=== PATIENT | female | born 1940 | race Caucasian/White ===

== ENCOUNTER → 2017-04-03 | Outpatient (CLI) | payer MEDICARE ==
[~2017-04-03] MED LIST: ALTACE1.25 MG PO; AMANTADINE HCL100 MG; ASPIRIN81 M1 PO; FOSAMAX; LANTUS100 U/ML; LIPITOR; NEPHROCAPS CAPSU1 MG; NOVOLOG100 U/ML; OYSTER CALCIUM500 MG; PRIMIDONE250 MG; RECLAST 55 MG/100 M INJ; TOPAMAX50 MG PO
[2017-04-03 13:18] LABS: URINE APPEARANCE CLEAR; URINE BILIRUBIN NEG (NEG); URINE BLOOD NEG (NEG); URINE COLOR YELLOW; URINE GLUCOSE NEG (NEG); URINE KETONE NEG (NEG); URINE LEUKOCYTE ESTERASE 2+ (NEG); URINE NITRATE NEG (NEG); URINE PROTEIN NEG (NEG); URINE SPECIFIC GRAVITY 1.016 (1.003-1.035); URINE UROBILINOGEN 0.2 MG/DL (NEG)
[2017-04-03 13:20] LABS: URBCS1 AUWI 0-2 /[HPF] (0-2); URINE BACTERIA AUWI NEG (NEGATIVE); URINE SQUAMOUS EPITHELIAL CELL OCC /[HPF]
== END | disposition home or self-care (01) ==
LOC: CLAB 12:50
PROVIDERS: Nurse Practitioner Adult Health
DX: E11.40 Type 2 diabetes mellitus with diabetic neuropathy, unspecified (principal); D86.2 Sarcoidosis of lung with sarcoidosis of lymph nodes
CPT/HCPCS: 81003; 87086

== ENCOUNTER → 2017-06-03 | Outpatient (CLI) | payer MEDICARE ==
--- NOTE | ~2017-06-03 | US98 ---
[facility] A Service of [facility] RADIOLOGY TEXT RESULTS PATIENT: SANDEEP JOHANSEN LOCATION: [facility] : 38 UNIT #: [id number] AGE: [address]: Tayo Arroyo MD SEX: F ORDER DR: [id number] [facility] [address] [place], [place] [address] [id number] O MR#: [id number] Acc #: [id number] NAME: SANDEEP JOHANSEN : 1940 SEX: F STUDY DATE/TIME: 06/03/2017 12:44 UNIT: [facility] ROOM: STUDY DESCRIPTION: US Pelvic Non-OB Complete Attending Physician: Tayo Arroyo Referring Physician: Tayo Arroyo Ordering Physician: Tiffany Arroyo M.D. Primary Care Physician: Cabrera Matthews M.D. MEDICAL IMAGING REPORT This report is preliminary unless electronic signature is present EXAM Transabdominal and transvaginal pelvic ultrasound. DATE: 06/03/2017 HISTORY 76-year-old female with abdominal swelling and pelvic fullness. The patient states pain has been present for several years. Intermittent constipation. Diabetes. G3, P2. Last menstrual period at the age of 50. History of breast cancer. COMPARISON None. FINDINGS Transabdominal imaging was performed for generalized visualization of pelvic structures while transvaginal imaging was performed for more detailed evaluation of the adnexa. Neither the right nor the left ovary can be satisfactorily visualized on transabdominal or transvaginal imaging. The uterus is atrophic, measuring approximately 4.9 cm x 2.3 cm x 3.2 cm. Endometrial bilayer thickness is approximate 2 mm, compatible with patient's stated age. No focal endometrial myometrium lesion is identified. Benign appearing dystrophic type calcifications are seen within the uterus. No pelvic free fluid is evident. IMPRESSION 1. Normal postmenopausal appearance of the uterus and endometrium. 2. The right and left ovaries could not be satisfactorily visualized either transabdominally or transvaginally. [facility] A Service of [facility] RADIOLOGY TEXT RESULTS PATIENT: SANDEEP JOHANSEN LOCATION: [facility] : 38 UNIT #: [id number] AGE: [address]: Tayo Arroyo MD SEX: F ORDER DR: 3. No pelvic mass lesion or free fluid is identified. Dictated by... Any John M.D. THIS IS AN ELECTRONICALLY VERIFIED REPORT Any John M.D. at 06/04/2017 8:56 AM HADLEY/carmelita TD: 06/03/2017 23:30 JOB #: [id number] MEDICAL IMAGING REPORT Page 1 of 1 COPY
--- NOTE | ~2017-06-03 | US5 ---
[facility] A Service of [facility] RADIOLOGY TEXT RESULTS PATIENT: SANDEEP JOHANSEN LOCATION: [facility] : 38 UNIT #: [id number] AGE: [address]: Tyao Arroyo MD SEX: F ORDER DR: [id number] [facility] [address]. [place], [place] [address] [id number] O MR#: [id number] Acc #: [id number] NAME: SANDEEP JOHANSEN : 1940 SEX: F STUDY DATE/TIME: 06/03/2017 12:08 UNIT: [facility] ROOM: STUDY DESCRIPTION: US Abdominal Complete Attending Physician: Tayo Arroyo Referring Physician: Tayo Arryoo Ordering Physician: Tiffany Arroyo M.D. Primary Care Physician: Cabrera Matthews M.D. MEDICAL IMAGING REPORT This report is preliminary unless electronic signature is present EXAM Complete abdominal ultrasound DATE: 06/03/2017 HISTORY Abdominal swelling and abnormal elevated liver function test and diffuse abdominal pressure. Abdominal pain for several years. Constipation. Diabetes. History of breast cancer with mastectomy. COMPARISON None. FINDINGS The pancreas is well visualized and appears grossly unremarkable. Liver demonstrates normal homogeneous echotexture without focal or suspicious abnormality. Liver size is within normal limits, 13.8 cm in long axis. No ascites. Intrahepatic IVC demonstrates color flow. Common bile duct caliber is normal, 4 mm. No intrahepatic biliary ductal dilation is seen. Right kidney measures 9.8 cm in length without focal cortical lesion, shadowing stone or hydronephrosis. Abdominal aorta is of normal caliber measuring up to 1.5 cm proximally with normal color spectral Doppler flow. No ascites is evident. Left kidney measures 11.2 cm in length without focal cortical lesion, shadowing stone or hydronephrosis. Spleen size is within normal limits, 8.6 cm. Gallbladder is surgically absent. IMPRESSION Cholecystectomy. Otherwise, negative complete abdominal ultrasound. [facility] A Service of [facility] RADIOLOGY TEXT RESULTS PATIENT: SANDEEP JOHANSEN [id number] 38 UNIT #: [id number] AGE: [address]: Tayo Arroyo MD SEX: F ORDER DR: Dictated by... Any John M.D. THIS IS AN ELECTRONICALLY VERIFIED REPORT Any John M.D. at 06/04/2017 8:56 AM HADLEY/carmelita TD: 06/03/2017 23:22 JOB #: [id number] MEDICAL IMAGING REPORT Page 1 of 1 COPY
== END | disposition home or self-care (01) ==
LOC: CWCC 10:30
DX: R19.00 Intra-abdominal and pelvic swelling, mass and lump, unspecified site (principal); R74.8 Abnormal levels of other serum enzymes; Z90.49 Acquired absence of other specified parts of digestive tract
CPT/HCPCS: 76700; 76830; 76856